=== PATIENT | female | born 1975 | race Caucasian/White ===

== ENCOUNTER 2017-08-29 22:27 | Emergency (ER) | payer MEDICAID ==
[~2017-08-29] VITALS: Ht 172.7 cm; Wt 73.0 kg
[2017-08-29 22:36] VITALS: BP 118/74
[2017-08-29] MEDS ORDERED: IBUPROFEN 800 MG TABLET PO STA (23:02)
[2017-08-29] MEDS ORDERED: IBUPROFEN 200 MG TABLET ONE (23:03)
== END 2017-08-29 23:32 | disposition home or self-care (01) ==
LOC: ED 23:30
DX: K08.89 Other specified disorders of teeth and supporting structures (principal); Z87.891 Personal history of nicotine dependence
CPT/HCPCS: 99283